=== PATIENT | male | born 2005 | race African-American/Black ===

== ENCOUNTER 2023-01-13 11:25 | Emergency (ER) | payer OTHER ==
[~2023-01-13] VITALS: Ht 177.8 cm; Wt 68.2 kg
[2023-01-13 14:09] VITALS: BP 128/67; TEMP 97.4; O2SAT 95
== END 2023-01-13 14:11 | disposition home or self-care (01) ==
LOC: EDBD 11:25 → M ED 11:25
DX: J11.1 Influenza due to unidentified influenza virus with other respiratory manifestations (principal)

== ENCOUNTER 2025-02-27 16:59 | Emergency (ER) | payer OTHER ==
[~2025-02-27] VITALS: Ht 180.3 cm; Wt 71.9 kg
[2025-02-27 17:08] VITALS: TEMP 97.7
[2025-02-27 20:24] VITALS: BP 121/70; O2SAT 100
[2025-02-27 20:27] LABS: BASO # 0.1 10^3/uL (0.0-0.2); BASO % 0.9 % (0.0-1.0); EOS # 0.3 10^3/uL (0.0-0.5); EOS % 5.4 % (0.0-3.0); LYMPH # 2.0 10^3/uL (1.5-5.0); LYMPH % 31.4 % (24.0-44.0); MONO # 0.3 10^3/uL (0.0-0.8); MONO % 3.9 % (2.0-8.0); NEUTROPHILS # 3.7 10^3/uL (1.5-8.5); NEUTROPHILS % 58.2 % (36.0-66.0); PLATELET COUNT, AUTOMATED 345 10^3/uL (150-450)
== END 2025-02-27 21:27 | disposition left against medical advice (07) ==
LOC: M ED 16:59
DX: R20.2 Paresthesia of skin (principal); Z53.9 Procedure and treatment not carried out, unspecified reason; F17.290 Nicotine dependence, other tobacco product, uncomplicated